=== PATIENT | female | born 1970 | race Two or more races ===

== ENCOUNTER 2018-09-01 08:43 | Outpatient (CLI) | payer OTHER ==
[~2018-09-01] VITALS: Ht 170.2 cm; Wt 86.2 kg
[~2018-09-01 08:43] MED LIST: AMBIEN10 MG PO; CIPRO750 MG PO; Colace 100MG PO; NEURONTIN PO; PERCOCET 5/3251 TAB PO
== END 2018-09-01 09:00 | disposition home or self-care (01) ==
LOC: OFIC 805 08:43
DX: R22.1 Localized swelling, mass and lump, neck (principal); M54.2 Cervicalgia; Z98.1 Arthrodesis status

== ENCOUNTER 2018-10-07 07:47 | Outpatient (CLI) | payer OTHER ==
[~2018-10-07] VITALS: Ht 152.4 cm; Wt 83.9 kg
== END 2018-10-07 08:10 | disposition home or self-care (01) ==
LOC: OFIC 805 07:47
DX: R22.1 Localized swelling, mass and lump, neck (principal); M54.2 Cervicalgia; E03.8 Other specified hypothyroidism